=== PATIENT | female | born 1970 | race Caucasian/White ===

== ENCOUNTER 2016-09-17 13:48 | Emergency (ER) | payer MEDICAID ==
[~2016-09-17] VITALS: Ht 152.4 cm; Wt 58.4 kg
[~2016-09-17 13:48] MED LIST: ACET500C5 PO; ASPI-465 PO; BENZ1LOZ28 MM; CETI10CA PO; CIPR500T4 PO; D-ME118S6 PO; HYDR-3498 PO; HYDR-906 PO; IBUP-1542 PO; METF1000 PO; METO10TA96 PO; OMEP20CA16 PO; TRAM50TA2 PO; VIGA RIGHT EYE
[2016-09-17 14:06] VITALS: Ht 152.4 cm; Wt 58.4 kg
[2016-09-17] MEDS ORDERED: morphine 4 MG/ML VIAL IV STA (17:35)
[2016-09-17] MEDS ORDERED: ONDANSETRON 4 MG INJ IV STA (17:35)
[2016-09-17] MEDS ORDERED: SOD CHLORIDE 0.9% 1,000 ML IV STA (17:35)
[2016-09-17 18:15] LABS: ADD SCAN DIFF NO
[2016-09-17 18:21] LABS: ADD UMIC NO; URINE BILIRUBIN (Dip) NEGATIVE (NEGATIVE); URINE BLOOD (Dip) NEGATIVE (NEGATIVE); URINE COLOR LT. YELLOW (YELLOW); URINE GLUCOSE (Dip) >=1000 % (NEGATIVE); URINE KETONES (Dip) TRACE (NEGATIVE); URINE LEUKOCYTE ESTERASE (Dip) NEGATIVE (NEGATIVE); URINE NITRITE (Dip) NEGATIVE (NEGATIVE); URINE TOTAL PROTEIN (Dip) NEGATIVE (NEGATIVE); URINE UROBILINOGEN (Dip) 0.2 E.U./dL (0.1-1.0)
[2016-09-17 18:23] LABS: BASOPHILS % 0.8 % (0.0-2.0); EOSINOPHILS # 0.2 10^3/ul (0.0-0.5); EOSINOPHILS % 3.8 % (0.0-7.0); HEMATOCRIT 37.8 % (37.0-47.0); HEMOGLOBIN 13.2 g/dl (12.0-16.0); LYMPHOCYTES # 1.6 10^3/ul (0.8-2.9); MEAN CORPUSCULAR HEMOGLOBIN 31.6 pg (29.0-33.0); MEAN CORPUSCULAR HGB CONC 34.9 g/dl (32.0-37.0); MEAN CORPUSCULAR VOLUME 90.4 fl (82.0-101.0); MONOCYTE # 0.4 10^3/ul (0.3-0.9); MONOCYTES % 9.1 % (0.0-11.0); NEUTROPHIL # 2.5 10^3/ul (1.6-7.5); NEUTROPHILS % 52.1 % (39.0-77.0); PLATELET COUNT 285 10^3/UL (140-415); RED BLOOD COUNT 4.18 10^6/ul (4.20-5.40); RED CELL DISTRIBUTION WIDTH 11.3 % (11.5-14.5); WHITE BLOOD COUNT 4.7 10^3/ul (4.8-10.8)
[2016-09-17 18:28] LABS: ALBUMIN 3.9 g/dl (3.3-4.9)
[2016-09-17 18:31] LABS: ALBUMIN/GLOBULIN RATIO 1.25; BILIRUBIN,INDIRECT 0.1 mg/dl (0-1.1); BILIRUBIN,TOTAL 0.1 mg/dl (0.2-1.3); CREATININE 0.38 mg/dl (0.44-1.00)
--- NOTE | 2016-09-17 18:44 | RADRPT ---
PROCEDURE: CT Abdomen and Pelvis without contrast. CLINICAL INDICATION: Abdominal and pelvic pain. TECHNIQUE: CT scan of the abdomen and pelvis without contrast was performed. Coronal and sagittal reformatted images were obtained from the axial source images. Images were reviewed on a high-resolu [employer] PACS workstation. Total exam DLP is 310.42 mGy-cm. CTDIvol is 5.66 mGy. One or more of the fo [facility] express dose reduction techniques were used: Automated exposure control, adjustment of the mA and/or kV according to patient size, use of iterative reconstruction technique. COMPARISON: CT scan of the abdomen and pelvis dated 04/06/2016. FINDINGS: The lung bases are normal. There is no pleural effusion. The liver is normal in size and attenuation. There is no focal hepatic lesion. The gallbladder is surgically absent with clips noted in the gallbladder bed. The bile ducts are no rmal. The spleen is normal in size. There is no focal splenic lesion. Both adrenals are normal with no enlargement or mass. The pancreas is unremarkable with no mass or evidence of pancreatitis. There is no renal mass or hydronephrosis. There is no renal calculus or ureteral calculus. The abdominal aorta is not dilated. There is no retroperitoneal lymphadenopathy or mass. There is no pelvic lymphadenopathy. There is a left adnexal cyst measuring 4.4 x 5.8 cm in AP and t ransverse dimensions. The bladder and distal ureters are normal. The periappendiceal region is unremarkable with no evidence of appendicitis. The bowel and mesentery are normal. There is no free fluid or free gas. The osseous structures are unremarkable with no fracture or lytic lesion. IMPRESSION: 1. Status post cholecystectomy. 2. Left adnexal cyst measuring 4.4 x 5.8 cm. Correlation with pelvic ultrasound advised. 3. Otherwise normal noncontrast CT scan of the abdomen and pelvis. RPTAT: QQ .Parvez Pfeiffer MD, Date Time Electronically viewed and signed by .Parvez Pfeiffer MD, on 09/17/2016 18:44 .R/
[2016-09-17] MEDS ORDERED: KETOROLAC 30 MG INJ IV STA (18:54)
--- NOTE | 2016-09-17 19:30 | RADRPT ---
PROCEDURE: US Pelvis. CLINICAL INDICATION: Pelvic pain. Left adnexal cyst seen on prior CT scan. TECHNIQUE: The pelvis was evaluated with transabdominal sonography in the axial and sagittal plane s. COMPARISON: CT scan of the abdomen and pelvis done earlier the same day. FINDINGS: Uterus: 7.6 x 4.3 x 5.9 cm. Endometrium: 5.1 mm. Right ovary: 3.4 x 2.2 x 2.6 cm. Left ovary: 6.3 x 5.1 x 5.9 cm. Uterine masses: None. Ovarian masses: The right ovary is normal. There is a left ovarian cyst with internal echoes and se ptations. The cyst measures 5.5 x 4.7 x 4.7 cm. Color Doppler and pulsed Doppler sonography demonst rate normal flow to the ovaries. Other pelvic masses: None. Free fluid: None. IMPRESSION: 1. Complex left ovarian cyst with internal echoes and septations measuring 5.5 x 4.7 x 4.7 cm. Thi s may be due to a hemorrhagic cyst or neoplasm. Clinical correlation and gynecologic consultation a dvised. 2. Otherwise unremarkable study. RPTAT: QQ .Parvez Pfeiffer MD, MD Date Time Electronically viewed and signed by .Parvez Pfeiffer MD, on 09/17/2016 19:30 .R/
[2016-09-17] MEDS ORDERED: HYDR-906 PO (19:46)
[2016-09-17 19:54] VITALS: BP 102/68; PULSE 92; RESP 18; TEMP 98
--- NOTE | 2016-09-17 19:58 | ERD ---
ER Documentation Chief Complaint Date/Time DATE: 09/17/16 TIME: 19:54 Chief Complaint Pt with LLQ pain X 3 days. Denies V/D. HPI This is a 45-year-old female that presents to the ER with left lower quadrant pain for the last 3 days. Patient states that left lower quadrant pain is severe and constant it is worse whenever she moves. Pain is rated as 8 out of 10. It radiates to her left leg. Patient denies any nausea vomiting or diarrhea. She denies any fevers or chills. She denies any urinary frequency or dysuria. Last menstrual period was August 19, 2016. ROS 12 point review of systems was done, all negative except per HPI. Medications Home Meds Active Scripts Hydrocodone/Acetaminophen ([place] 5-325 Tablet) 1 Each Tablet, 1 TAB PO Q6H Y for PAIN, #20 TAB Prov:SAYRA WARE 09/17/16 Hydrocodone/Acetaminophen ([place] 5-325 Tablet) 1 Each Tablet, 1 EACH PO Q6, #7 TAB Prov:PEDRO PIERCE PA-C 04/06/16 Dextromethorphan Hb-Promethazine Hcl (Promethazine DM Syrup) 180 Ml Syrup, 5 ML PO Q6H Y for COUGH, #4 OZ Prov:AGNES BRENNER I. DROP FORGER HELPER 09/11/15 Benzocaine/Menthol ([facility] SORE THROAT LOZENGE) 1 Each Lozenge, 1 EACH MM Q2H for 10 Days, LOZENGE Prov:AGNES BRENNER I. DROP FORGER HELPER 09/11/15 Acetaminophen* (Tylophen*) 500 Mg Capsule, 1000 MG PO Q6H Y for FEVER for 10 Days, TAB Prov:AGNES BRENNER I. DROP FORGER HELPER 09/11/15 Ibuprofen* (Motrin*) 600 Mg Tab, 600 MG PO Q6, #20 TAB Prov:AGNES BRENNER I. DROP FORGER HELPER 09/11/15 Cetirizine Hcl* (Zyrtec*) 10 Mg Capsule, 10 MG PO DAILY, #10 TAB.CHEW Prov:AGNES BRENNER I. DROP FORGER HELPER 09/11/15 Hydrocodone Bit-Acetaminophen* ([place]*) 5-325 Mg Tab, 1 TAB PO Q6 Y for PAIN, # 7 TAB Prov:AGNES BRENNER I. DROP FORGER HELPER 09/11/15 Moxifloxacin Hcl* (Vigamox*) 0.5% - 3 Ml Opht, 1 DROP RIGHT EYE TID, #1 EA Prov:ANA SUTTON PA-C 04/24/15 Tramadol HCl (Tramadol HCl) 50 Mg Tab, 50 MG PO Q4 Y for PAIN, #10 TAB Prov:ANA SUTTON PA-C 04/24/15 Tramadol HCl (Tramadol HCl) 50 Mg Tab, 50 MG PO Q6 Y for PAIN, #20 TAB Prov:NORMAN FARLEY 02/20/15 Ciprofloxacin Hcl* (Ciprofloxacin Hcl*) 500 Mg Tablet, 500 MG PO BID for 7 Days , TAB Prov:LIYA GILLESPIE MD 02/06/15 Hydrocodone Bit-Acetaminophen* ([place]*) 5-325 Mg Tab, 1 TAB PO Q6 Y for PAIN, # 10 TAB Prov:LIYA GILLESPIE MD 02/06/15 Reported Medications Metformin Hcl* (Metformin Hcl*) 1,000 Mg Tablet, 1000 MG PO BID 10/17/12 Omeprazole* (Omeprazole*) 20 Mg Capsule.dr, 20 MG PO DAILY 10/17/12 Aspirin (Adult Low Dose Aspirin) 81 Mg Tablet.dr, 81 MG PO DAILY 10/17/12 Metoclopramide Hcl* (Metoclopramide Hcl*) 10 Mg Tablet, 10 MG PO DAILY 10/17/12 Allergies Allergies: Coded Allergies: No Known Drug Allergies (Verified Allergy, Mild, 09/11/15) PMhx/Soc History of Surgery: Yes (c section) Anesthesia Reaction: No Hx Neurological Disorder: No Hx Respiratory Disorders: No Hx Cardiac Disorders: Yes (htn; hypercholesterolemia) Hx Psychiatric Problems: No Hx Miscellaneous Medical Probl: Yes (DM) Hx Alcohol Use: No Hx Substance Use: No Hx Tobacco Use: No Smoking Status: Never smoker Physical Exam Vitals Vital Signs Date Time Temp Pulse Resp B/P Pulse Ox O2 Delivery O2 Flow Rate FiO2 09/17/16 14:06 98.1 102 20 104/63 99 Physical Exam GENERAL: The patient is well developed and appropriate for usual state of health , in no apparent distress. HEENT: Atraumatic. Conjunctivae are pink. Pupils equal, round, and reactive to light. Extraocular muscles are grossly intact. Bilateral tympanic membranes are clear with no evidence of erythema, effusion or dulling of the light reflex. The oropharynx is clear with no erythema or exudates. CHEST: Clear to auscultation bilaterally. There are no rales, wheezes or rhonchi. HEART: Regular rate and rhythm. No murmurs, clicks, rubs or gallops. ABDOMEN: Soft, and nondistended. Good bowel sounds. No rebound or guarding. No gross peritonitis. No gross organomegaly or masses. No Zarco sign or McBurney point tenderness. Patient to palpation in the left lower quadrant NEURO: Alert and oriented. Result Diagram: 09/17/16175009/17/161750 Results 24 hrs Laboratory Tests Test 09/17/16 17:51 Alanine Aminotransferase (ALT/SGPT) 35IU/L Albumin 3.9g/dl Albumin/Globulin Ratio 1.25 Alkaline Phosphatase 80IU/L Anion Gap 16 Aspartate Amino Transf (AST/SGOT) 22IU/L Basophils # 0.010^3/ul Basophils % 0.8% Blood Urea Nitrogen 14mg/dl Calcium Level 9.0mg/dl Carbon Dioxide Level 26mmol/L Chloride Level 101mmol/L Creatinine 0.38mg/dl Direct Bilirubin 0.00mg/dl Eosinophils # 0.210^3/ul Eosinophils % 3.8% Globulin 3.10g/dl Glucose Level 233mg/dl Hematocrit 37.8% Hemoglobin 13.2g/dl Indirect Bilirubin 0.1mg/dl Lipase 60U/L Lymphocytes # 1.610^3/ul Lymphocytes % 34.0% Mean Corpuscular Hemoglobin 31.6pg Mean Corpuscular Hemoglobin Concent 34.9g/dl Mean Corpuscular Volume 90.4fl Mean Platelet Volume 10.0fl Monocytes # 0.410^3/ul Monocytes % 9.1% Neutrophils # 2.510^3/ul Neutrophils % 52.1% Nucleated Red Blood Cells # 0.010^3/ul Nucleated Red Blood Cells % 0.0/100WBC Platelet Count 21456^3/UL Potassium Level 4.0mmol/L Red Blood Count 4.1810^6/ul Red Cell Distribution Width 11.3% Sodium Level 139mmol/L Total Bilirubin 0.1mg/dl Total Protein 7.0g/dl Urine Bilirubin NEGATIVE Urine Clarity CLEAR Urine Color LT. YELLOW Urine Glucose >=1000% Urine Hemoglobin NEGATIVE Urine Ketones TRACE Urine Leukocyte Esterase NEGATIVE Urine Nitrite NEGATIVE Urine Specific [place] 1.025 Urine Total Protein NEGATIVE Urine Urobilinogen 0.2 E.U./dL Urine pH 6.0 White Blood Count 4.710^3/ul Current Medications Medications (Trade) Dose Ordered Sig/Britta Route PRN Reason Start Time Stop Time Status Last Admin Dose Admin Sodium Chloride (NS) 1,000 ml @ 1,000 mls/hr Q1H STAT IV 09/17/16 17:35 09/17/16 18:34 DC 09/17/16 17:51 Morphine Sulfate (morphine) 5 mg ONCE STAT IV 09/17/16 17:35 09/17/16 17:37 DC 09/17/16 17:51 Ondansetron HCl (Zofran Inj) 4 mg ONCE STAT IV 09/17/16 17:35 09/17/16 17:37 DC 09/17/16 17:50 Ketorolac Tromethamine (Toradol) 30 mg ONCE STAT IV 09/17/16 18:54 09/17/16 18:55 DC 09/17/16 19:23 Procedures/MDM Differential diagnosis includes but is not limited to appendicitis, diverticulitis, hernia, UTI, constipation, ectopic , ovarian cyst, ovarian torsion, PID, Mittelschmerz, fibroid. Patient did have a significant ovarian cyst. At this time there is no evidence of ovarian torsion. Patient is afebrile and well-appearing 8 out acute abdomen. There is no evidence of diverticulitis. Patient urgently needs to follow-up with an CUSTOMER SUPPORT EXECUTIVE. Patient will be sent with [place]. She is to return to ER sooner if symptoms worsen. Medical decision making was shared with the patient understands and agrees with plan. Departure Diagnosis: Primary Impression: Ovarian cyst Condition: Stable Patient Instructions: What Are Ovarian Cysts? Additional Instructions: Llame al doctor MAANA y ga jennie EUN PARA DENTRO DE 1-2 WHITTAKER.Dgale a la secretaria que nosotros le instruimos hacer esta eun.Avise o llame si medina condicin se empeora antes de la eun. Regresa aqui si peor o no mejor. NECESITAS IR A JENNIE GINECOLOGA LO MAS PRONTO POSIBLE! PIDELE A TU DOCTOR DE CABEZERA JENNIE AUTORIZACION. SAYRA WARE Sep 17, 2016 19:57
== END 2016-09-17 19:54 | disposition home or self-care (01) ==
LOC: FTE 13:48
DX: N83.202 Unspecified ovarian cyst, left side (principal); I10 Essential (primary) hypertension; E11.9 Type 2 diabetes mellitus without complications; Z79.82 Long term (current) use of aspirin; Z79.84 Long term (current) use of oral hypoglycemic drugs
CPT/HCPCS: 36415; 74176; 76856; 80053; 81003; 83690; 85025; 96374; 96375; J1885; J2270; J2405; J7030; Z7502

== ENCOUNTER 2016-10-28 07:47 | Emergency (ER) | payer MEDICAID ==
[~2016-10-28] VITALS: Ht 152.4 cm; Wt 56.0 kg
[2016-10-28 07:49] VITALS: Ht 152.4 cm; Wt 56.0 kg
[2016-10-28] MEDS ORDERED: KETOROLAC 30 MG INJ IM STA (08:23)
[2016-10-28] MEDS ORDERED: HYDROCODONE/APAP (5/325) TAB PO ONE (08:30)
[2016-10-28 08:43] LABS: URINE BLOOD (Dip) POC Negative (NEGATIVE)
[2016-10-28 08:57] LABS: ADD SCAN DIFF NO
[2016-10-28 09:03] LABS: BASOPHILS % 0.8 % (0.0-2.0); EOSINOPHILS # 0.1 10^3/ul (0.0-0.5); EOSINOPHILS % 2.9 % (0.0-7.0); HEMATOCRIT 38.4 % (37.0-47.0); HEMOGLOBIN 13.5 g/dl (12.0-16.0); LYMPHOCYTES # 1.3 10^3/ul (0.8-2.9); LYMPHOCYTES % 27.3 % (15.0-51.0); MEAN CORPUSCULAR HEMOGLOBIN 31.8 pg (29.0-33.0); MEAN CORPUSCULAR HGB CONC 35.2 g/dl (32.0-37.0); MEAN CORPUSCULAR VOLUME 90.4 fl (82.0-101.0); MEAN PLATELET VOLUME 9.4 fl (7.4-10.4); MONOCYTE # 0.4 10^3/ul (0.3-0.9); MONOCYTES % 7.8 % (0.0-11.0); NEUTROPHIL # 2.9 10^3/ul (1.6-7.5); PLATELET COUNT 250 10^3/UL (140-415); RED BLOOD COUNT 4.25 10^6/ul (4.20-5.40); RED CELL DISTRIBUTION WIDTH 11.3 % (11.5-14.5); WHITE BLOOD COUNT 4.8 10^3/ul (4.8-10.8)
--- NOTE | 2016-10-28 09:13 | RADRPT ---
PROCEDURE: Bilateral lower extremity venous ultrasound CLINICAL INDICATION: Bilateral leg pain and swelling TECHNIQUE: Multiple transverse and longitudinal images of the bilateral lower extremity were obtai sophie. COMPARISON: 03/01/2013 FINDINGS: Normal compressibility and color flow in the bilateral common femoral vein to the popliteal vein is seen. Normal respiratory variability and augmentation is seen. IMPRESSION: No sonographic evidence for a deep venous thrombosis. RPTAT: HPNM Physician Tsering Date Time Electronically viewed and signed by Ronnie Bermeo Physician on 10/28/2016 09:13 /
[2016-10-28 09:14] LABS: ALBUMIN/GLOBULIN RATIO 1.33; BILIRUBIN,INDIRECT 0.6 mg/dl (0-1.1); BILIRUBIN,TOTAL 0.6 mg/dl (0.2-1.3); CREATININE 0.43 mg/dl (0.44-1.00); POTASSIUM 4.3 mmol/L (3.5-5.1)
--- NOTE | 2016-10-28 09:46 | RADRPT ---
PROCEDURE: XR L-Spine. CLINICAL INDICATION: Low back pain. Bilateral feet numbness and tingling TECHNIQUE: AP, lateral, and cone down views of the lumbar spine were obtained. COMPARISON: None FINDINGS: The lumbar lordosis is maintained. The vertebral body heights are normal. Osteophytosis is seen at T11-12 with mild disk height loss. Mild disk height loss at L5-S1 is also seen. Small marginal ost eophytes are seen in the lumbar spine. No acute fracture or subluxation is seen. No paravertebral s oft tissue abnormality is seen. Cholecystectomy clips are seen. IMPRESSION: Very mild discogenic disease in the lumbar spine. RPTAT: HPNM Physician Tsering Date Time Electronically viewed and signed by Physician Tsering on 10/28/2016 09:46 /
--- NOTE | 2016-10-28 09:49 | ERD ---
ER Documentation Chief Complaint Date/Time DATE: 10/28/16 TIME: 09:45 Chief Complaint left knee pain x 5 days; motrin and tylenol are not working for pain HPI This is a 45-year-old female presenting to the emergency department for bilateral leg pain with numbness and tingling to bottom of bilateral feet 5 days. Patient states pain was severe last night and has difficulty sleeping. Patient took Motrin and Tylenol at home however states pain in 10 years. Upon arrival, patient states most of her pain is in her left knee that does radiate down to lateral aspect of left calf. No swelling. No recent injury or trauma. Patient denies back pain, abdominal pain. No nausea, vomiting or diarrhea. No fevers or chills. Patient has history of diabetes however has not checked her blood glucose. Patient has history of sciatica, knee pain and bilateral leg pain. ROS All systems reviewed and are negative except as per history of present illness. Medications Home Meds Active Scripts Ibuprofen* (Motrin*) 400 Mg Tab, 400 MG PO Q6, #15 TAB Prov:SINA ALARCON NP 10/28/16 Hydrocodone/Acetaminophen ([place] 5-325 Tablet) 1 Each Tablet, 1 TAB PO Q6H Y for PAIN, #7 TAB Prov:SINA ALARCON NP 10/28/16 Hydrocodone/Acetaminophen ([place] 5-325 Tablet) 1 Each Tablet, 1 TAB PO Q6H Y for PAIN, #20 TAB Prov:SAYRA WARE 09/17/16 Hydrocodone/Acetaminophen ([place] 5-325 Tablet) 1 Each Tablet, 1 EACH PO Q6, #7 TAB Prov:PEDRO PIERCE PA-C 04/06/16 Dextromethorphan Hb-Promethazine Hcl (Promethazine DM Syrup) 180 Ml Syrup, 5 ML PO Q6H Y for COUGH, #4 OZ Prov:AGNES BRENNER NP 09/11/15 Benzocaine/Menthol ([facility] SORE THROAT LOZENGE) 1 Each Lozenge, 1 EACH MM Q2H for 10 Days, LOZENGE Prov:AGNES BRENNER NP 09/11/15 Acetaminophen* (Tylophen*) 500 Mg Capsule, 1000 MG PO Q6H Y for FEVER for 10 Days, TAB Prov:AGNES BRENNER NP 09/11/15 Ibuprofen* (Motrin*) 600 Mg Tab, 600 MG PO Q6, #20 TAB Prov:AGNES BRENNER I. PRODUCT SUPPORT ANALYST 09/11/15 Cetirizine Hcl* (Zyrtec*) 10 Mg Capsule, 10 MG PO DAILY, #10 TAB.CHEW Prov:AGNES BRENNER I. PRODUCT SUPPORT ANALYST 09/11/15 Hydrocodone Bit-Acetaminophen* ([place]*) 5-325 Mg Tab, 1 TAB PO Q6 Y for PAIN, # 7 TAB Prov:AGNES BRENNER I. PRODUCT SUPPORT ANALYST 09/11/15 Moxifloxacin Hcl* (Vigamox*) 0.5% - 3 Ml Opht, 1 DROP RIGHT EYE TID, #1 EA Prov:ANA SUTTON PA-C 04/24/15 Tramadol HCl (Tramadol HCl) 50 Mg Tab, 50 MG PO Q4 Y for PAIN, #10 TAB Prov:ANA SUTTON PA-C 04/24/15 Tramadol HCl (Tramadol HCl) 50 Mg Tab, 50 MG PO Q6 Y for PAIN, #20 TAB Prov:NORMAN FARLEY 02/20/15 Ciprofloxacin Hcl* (Ciprofloxacin Hcl*) 500 Mg Tablet, 500 MG PO BID for 7 Days , TAB Prov:LIYA GILLESPIE MD 02/06/15 Hydrocodone Bit-Acetaminophen* ([place]*) 5-325 Mg Tab, 1 TAB PO Q6 Y for PAIN, # 10 TAB Prov:LIYA GILLESPIE MD 02/06/15 Reported Medications Metformin Hcl* (Metformin Hcl*) 1,000 Mg Tablet, 1000 MG PO BID 10/17/12 Omeprazole* (Omeprazole*) 20 Mg Capsule.dr, 20 MG PO DAILY 10/17/12 Aspirin (Adult Low Dose Aspirin) 81 Mg Tablet.dr, 81 MG PO DAILY 10/17/12 Metoclopramide Hcl* (Metoclopramide Hcl*) 10 Mg Tablet, 10 MG PO DAILY 10/17/12 Allergies Allergies: Coded Allergies: No Known Drug Allergies (Verified Allergy, Mild, 10/28/16) PMhx/Soc History of Surgery: Yes (c section) Anesthesia Reaction: No Hx Neurological Disorder: No Hx Respiratory Disorders: No Hx Cardiac Disorders: Yes (htn; hypercholesterolemia) Hx Psychiatric Problems: No Hx Miscellaneous Medical Probl: Yes (DM) Hx Alcohol Use: Yes (Social) Hx Substance Use: Yes Hx Tobacco Use: No Smoking Status: Never smoker Physical Exam Vitals Vital Signs Date Time Temp Pulse Resp B/P Pulse Ox O2 Delivery O2 Flow Rate FiO2 10/28/16 13:00 98.5 70 18 111/68 99 Room Air 10/28/16 07:49 98.1 97 19 107/68 100 Physical Exam Const: no acute distress, alert Head: Atraumatic Eyes: Normal Conjunctiva ENT: Normal External Ears, Nose and Mouth. Neck: Full range of motion..~ No meningismus. Resp: Clear to auscultation bilaterally Cardio: Regular rate and rhythm, no murmurs Abd: Soft, non tender, non distended. Normal bowel sounds Skin: No petechiae or rashes Back: No midline or flank tenderness Ext: No cyanosis, or edema Neur: Awake and alert Psych: Normal Mood and Affect Result Diagram: 10/28/16 0839 10/28/16 0839 Results 24 hrs Laboratory Tests Test 10/28/16 08:39 10/28/16 08:43 10/28/16 11:12 10/28/16 12:32 White Blood Count 4.810^3/ul Red Blood Count 4.2510^6/ul Hemoglobin 13.5g/dl Hematocrit 38.4% Mean Corpuscular Volume 90.4fl Mean Corpuscular Hemoglobin 31.8pg Mean Corpuscular Hemoglobin Concent 35.2g/dl Red Cell Distribution Width 11.3% Platelet Count 10735^3/UL Mean Platelet Volume 9.4fl Neutrophils % 61.0% Lymphocytes % 27.3% Monocytes % 7.8% Eosinophils % 2.9% Basophils % 0.8% Nucleated Red Blood Cells % 0.0/100WBC Neutrophils # 2.910^3/ul Lymphocytes # 1.310^3/ul Monocytes # 0.410^3/ul Eosinophils # 0.110^3/ul Basophils # 0.010^3/ul Nucleated Red Blood Cells # 0.010^3/ul Sodium Level 135mmol/L Potassium Level 4.3mmol/L Chloride Level 98mmol/L Carbon Dioxide Level 29mmol/L Anion Gap 12 Blood Urea Nitrogen 15mg/dl Creatinine 0.43mg/dl Glucose Level 344mg/dl Calcium Level 9.0mg/dl Total Bilirubin 0.6mg/dl Direct Bilirubin 0.00mg/dl Indirect Bilirubin 0.6mg/dl Aspartate Amino Transf (AST/SGOT) 20IU/L Alanine Aminotransferase (ALT/SGPT) 25IU/L Alkaline Phosphatase 64IU/L Total Protein 7.0g/dl Albumin 4.0g/dl Globulin 3.00g/dl Albumin/Globulin Ratio 1.33 Bedside Urine pH (LAB) 5.5 Bedside Urine Protein (LAB) Negative Bedside Urine Glucose (UA) 0.50% Bedside Urine Ketones (LAB) Negative Bedside Urine Blood Negative Bedside Urine Nitrite (LAB) Negative Bedside Urine Leukocyte Esterase (L Negative Bedside Glucose 282mg/dL 232mg/dL Current Medications Medications (Trade) Dose Ordered Sig/Britta Route PRN Reason Start Time Stop Time Status Last Admin Dose Admin Ketorolac Tromethamine (Toradol) 30 mg ONCE STAT IM 10/28/16 08:23 10/28/16 08:27 DC 10/28/16 08:45 Acetaminophen/ Hydrocodone Bitart 1 tab 1 tab ONCE ONCE PO 10/28/16 08:30 10/28/16 08:31 DC 10/28/16 08:45 Sodium Chloride 500 ml @ 500 mls/hr Q1H ONCE IV 10/28/16 10:00 10/28/16 11:38 DC 10/28/16 10:07 Sodium Chloride (NS) 500 ml @ 500 mls/hr Q1H ONCE IV 10/28/16 11:30 10/28/16 12:29 DC 10/28/16 11:29 Procedures/MDM ED COURSE: The patient was stable throughout ED course. I kept the patient and/or family informed of laboratory and diagnostic imaging results throughout the ED course. Laboratory CBC no significant anemia or infection CMP blood glucose 344, upon recheck blood glucose 282 and upon recheck 232 Urine dip negative Imaging Venous doppler ultrasound Patient: LEODAN SESAY : 1970 Age: 45 Sex: F MR #: [id number] DOS: 10/28/16822 Ordering MD: SINA ALARCON NP Location: [facility] Room/Bed: PROCEDURE: Bilateral lower extremity venous ultrasound CLINICAL INDICATION: Bilateral leg pain and swelling TECHNIQUE: Multiple transverse and longitudinal images of the bilateral lower extremity were obtained. COMPARISON: 03/01/2013 FINDINGS: Normal compressibility and color flow in the bilateral common femoral vein to the popliteal vein is seen. Normal respiratory variability and augmentation is seen. IMPRESSION: No sonographic evidence for a deep venous thrombosis. XR lumbar spine Patient: LEODAN SESAY : 1970 Age: 45 Sex: F MR #: [id number] DOS: 10/28/16822 Ordering MD: SINA ALARCON NP Location: [facility] Room/Bed: PROCEDURE: XR L-Spine. CLINICAL INDICATION: Low back pain. Bilateral feet numbness and tingling TECHNIQUE: AP, lateral, and cone down views of the lumbar spine were obtained. COMPARISON: None FINDINGS: The lumbar lordosis is maintained. The vertebral body heights are normal. Osteophytosis is seen at T11-12 with mild disk height loss. Mild disk height loss at L5-S1 is also seen. Small marginal osteophytes are seen in the lumbar spine. No acute fracture or subluxation is seen. No paravertebral soft tissue abnormality is seen. Cholecystectomy clips are seen. IMPRESSION: Very mild discogenic disease in the lumbar spine. XR right knee Patient: LEODAN SESAY : 1970 Age: 45 Sex: F MR #: [id number] DOS: 10/28/16822 Ordering MD: SINA ALARCON NP Location: [facility] Room/Bed: PROCEDURE: Left knee x-ray CLINICAL INDICATION: left knee pain TECHNIQUE: AP, lateral and oblique views of the left knee were obtained. COMPARISON: None FINDINGS: There is normal mineralization. No acute fracture or dislocation is seen. There are no significant degenerative changes. There is no joint effusion. There is no significant soft tissue swelling. IMPRESSION: Normal x-ray of the left knee. MDM: 45 year old female presents to ER with bilateral leg pain and left knee pain x 5 days. Patient does have numbness and tingling to bilateral feet. Patient has history of diabetes and does not check her blood glucose regularly. IV access obtained per staff combat information center officer. Patient given Toradol and [place]. Venous Doppler ultrasound of bilateral legs reviewed by radiologist as no sonographic evidence for a deep venous thrombosis. X-ray lumbar spine reviewed by radiologist as very mild discogenic disease in the lumbar spine. X-ray left knee reviewed by radiologist as normal. Patient states her pain has improved. CBC shows no significant infection or anemia. CBC reveals blood glucose 344. Patient given IV fluid bolus of normal saline 500 mL. Upon recheck of blood glucose patient's blood glucose is 282., Patient given another 500 mL IV fluid bolus of normal saline and upon recheck, patient's blood glucose is 232. Urine is negative for infection. Remains hemodynamically stable and afebrile. Low suspicion for acute dislocation, fracture, cauda equina, epidural abscess, diskitis, DVT and osteomyelitis. Patient is appropriate for outpatient management and will be discharged with prescription for [place] and ibuprofen. Instructed patient to follow-up with primary care provider in the next 2-3 days for reassessment and additional management. Return to ED for any high fever, chest pain, difficulty breathing, shortness breath, wheezing, vomiting, diarrhea, abdominal pain or any new or worsening symptoms. Patient verbalizes understanding. All questions answered at discharge. Departure Diagnosis: Primary Impression: Bilateral leg pain SINA ALARCON NP Oct 28, 2016 09:49
[2016-10-28] MEDS ORDERED: SOD CHLORIDE 0.9% 500 ML IV ONE ×2 (10:00→11:30)
--- NOTE | 2016-10-28 10:16 | RADRPT ---
PROCEDURE: Left knee x-ray CLINICAL INDICATION: left knee pain TECHNIQUE: AP, lateral and oblique views of the left knee were obtained. COMPARISON: None FINDINGS: There is normal mineralization. No acute fracture or dislocation is seen. There are no significant degenerative changes. There is no joint effusion. There is no significant soft tissue swelling. IMPRESSION: Normal x-ray of the left knee. RPTAT: HJES .Jerosn Monae MD, MD Date Time Electronically viewed and signed by .Jerson Monae MD, on 10/28/2016 10:15 .S/
[2016-10-28] MEDS ORDERED: HYDR-906 PO (12:13)
[2016-10-28] MEDS ORDERED: IBUP400T22 PO (12:13)
[2016-10-28 13:00] VITALS: BP 111/68; PULSE 70; RESP 18; TEMP 98.5
== END 2016-10-28 13:00 | disposition home or self-care (01) ==
LOC: FTE 07:47
DX: M79.661 Pain in right lower leg (principal); M79.662 Pain in left lower leg; I10 Essential (primary) hypertension; E11.9 Type 2 diabetes mellitus without complications; Z79.84 Long term (current) use of oral hypoglycemic drugs; Z79.82 Long term (current) use of aspirin
CPT/HCPCS: 36415; 72100; 73562; 80053; 81003; 82962; 85025; 93970; 96360; 96372; J1885; J7040; Z7502; Z7610

== ENCOUNTER 2017-06-07 20:59 | Emergency (ER) | payer MEDICAID ==
[~2017-06-07] VITALS: Ht 152.4 cm; Wt 58.6 kg
[~2017-06-07 20:59] MED LIST changes: +IBUP400T22 PO
[2017-06-07 21:03] VITALS: Ht 152.4 cm; Wt 58.6 kg
--- NOTE | 2017-06-07 22:52 | ERD ---
ER Documentation Chief Complaint Chief Complaint BIB SELF C/O BILATERAL LEG PAIN X 3 DAYS. DENIES ANY INJURY HPI The patient is a 46-year-old female, presenting to the ER because of acute on chronic bilateral lower extremity pain, worse for the last 3 days, has similar symptoms previously, denies urinary/fecal incontinence, fever, chills, neck pain , chest pain, dyspnea, abdominal, vomiting. She does not smoke or drink, denies any history of IV drug abuse. Past medical history: Hypertension, dyslipidemia, diabetes mellitus, chronic low back pain Past surgical history 2 , cholecystectomy ROS All systems reviewed and are negative except as per history of present illness. Medications Home Meds Active Scripts Gabapentin* (Neurontin*) 300 Mg Capsule, 300 MG PO BID, #30 CAP Prov:JOSIANE MARKHAM MD 06/07/17 Ibuprofen* (Motrin*) 400 Mg Tab, 400 MG PO Q6, #15 TAB Prov:SINA ALARCON NP 10/28/16 Hydrocodone/Acetaminophen ([place] 5-325 Tablet) 1 Each Tablet, 1 TAB PO Q6H Y for PAIN, #7 TAB Prov:SINA ALARCON NP 10/28/16 Hydrocodone/Acetaminophen ([place] 5-325 Tablet) 1 Each Tablet, 1 TAB PO Q6H Y for PAIN, #20 TAB Prov:SAYRA WARE 09/17/16 Hydrocodone/Acetaminophen ([place] 5-325 Tablet) 1 Each Tablet, 1 EACH PO Q6, #7 TAB Prov:PEDRO PIERCE PA-C 04/06/16 Dextromethorphan Hb-Promethazine Hcl (Promethazine DM Syrup) 180 Ml Syrup, 5 ML PO Q6H Y for COUGH, #4 OZ Prov:AGNES BRENNER I. RADIO ADJUSTER 09/11/15 Benzocaine/Menthol ([facility] SORE THROAT LOZENGE) 1 Each Lozenge, 1 EACH MM Q2H for 10 Days, LOZENGE Prov:BRENNERAGNES I. RADIO ADJUSTER 09/11/15 Acetaminophen* (Tylophen*) 500 Mg Capsule, 1000 MG PO Q6H Y for FEVER for 10 Days, TAB Prov:BRENNERAGNES SALMERON I. RADIO ADJUSTER 09/11/15 Ibuprofen* (Motrin*) 600 Mg Tab, 600 MG PO Q6, #20 TAB Prov:BRENNERAGNES I. RADIO ADJUSTER 09/11/15 Cetirizine Hcl* (Zyrtec*) 10 Mg Capsule, 10 MG PO DAILY, #10 TAB.CHEW Prov:AGNES BRENNER I. RADIO ADJUSTER 09/11/15 Hydrocodone Bit-Acetaminophen* ([place]*) 5-325 Mg Tab, 1 TAB PO Q6 Y for PAIN, # 7 TAB Prov:BRENNERAGNES ALDRICH I. RADIO ADJUSTER 09/11/15 Moxifloxacin Hcl* (Vigamox*) 0.5% - 3 Ml Opht, 1 DROP RIGHT EYE TID, #1 EA Prov:ANA SUTTON PA-C 04/24/15 Tramadol HCl (Tramadol HCl) 50 Mg Tab, 50 MG PO Q4 Y for PAIN, #10 TAB Prov:ANA SUTTON PA-C 04/24/15 Tramadol HCl (Tramadol HCl) 50 Mg Tab, 50 MG PO Q6 Y for PAIN, #20 TAB Prov:NORMAN FARLEY 02/20/15 Ciprofloxacin Hcl* (Ciprofloxacin Hcl*) 500 Mg Tablet, 500 MG PO BID for 7 Days , TAB Prov:LIYA GILLESPIE MD 02/06/15 Hydrocodone Bit-Acetaminophen* ([place]*) 5-325 Mg Tab, 1 TAB PO Q6 Y for PAIN, # 10 TAB Prov:LIYA GILLESPIE MD 02/06/15 Reported Medications Metformin Hcl* (Metformin Hcl*) 1,000 Mg Tablet, 1000 MG PO BID 10/17/12 Omeprazole* (Omeprazole*) 20 Mg Capsule.dr, 20 MG PO DAILY 10/17/12 Aspirin (Adult Low Dose Aspirin) 81 Mg Tablet.dr, 81 MG PO DAILY 10/17/12 Metoclopramide Hcl* (Metoclopramide Hcl*) 10 Mg Tablet, 10 MG PO DAILY 10/17/12 Allergies Allergies: Coded Allergies: No Known Drug Allergies (Verified Allergy, Mild, 10/28/16) PMhx/Soc History of Surgery: Yes (c section) Anesthesia Reaction: No Hx Neurological Disorder: No Hx Respiratory Disorders: No Hx Cardiac Disorders: Yes (htn; hypercholesterolemia) Hx Psychiatric Problems: No Hx Miscellaneous Medical Probl: Yes (DM) Hx Alcohol Use: Yes (Social) Hx Substance Use: Yes Hx Tobacco Use: No Physical Exam Vitals Vital Signs Date Time Temp Pulse Resp B/P Pulse Ox O2 Delivery O2 Flow Rate FiO2 06/07/17 21:03 98.0 109 20 131/79 98 Physical Exam Const: No acute distress. Head: Atraumatic. Eyes: Normal Conjunctiva. ENT: Normal External Ears, Nose and Mouth. Neck: Full range of motion. No meningismus. Resp: Clear to auscultation bilaterally. Cardio: Regular rate and rhythm. Abd: Soft, non distended, normal bowel sounds, non tender. Skin: No petechiae or rashes. Back: No midline or flank tenderness. Ext: No cyanosis, or edema.No calf tenderness, negative straight leg raising test Neur: Awake and alert. No focal deficit Psych: Normal Mood and Affect. Results 24 hrs Current Medications Medications (Trade) Dose Ordered Sig/Britta Route PRN Reason Start Time Stop Time Status Last Admin Dose Admin Gabapentin (Neurontin) 300 mg ONCE ONCE PO 06/07/17 23:30 06/07/17 23:31 DC Procedures/MDM MEDICAL MAKING DECISION: The patient is a 46-year-old female, presenting with probable chronic peripheral neuropathy from diabetes. She was treated with Neurontin milligrams p.o. with good response The differential diagnoses considered include but are not limited to lumbar radiculopathy, sciatica, DVT Departure Diagnosis: Primary Impression: Peripheral neuropathy Condition: Good Comments She was discharged with Neurontin I discussed the findings with the patient. I advised the patient to follow-up with the primary physician in about 1-2 days, sooner if needed and return if any concern. Disclaimer: Inadvertent spelling and grammatical errors are likely due to EHR/ dictation software use and do not reflect on the overall quality of patient care. Also, please note that the electronic time recorded on this note does not necessarily reflect the actual time of the patient encounter. JOSIANE MARKHAM MD Jun 07, 2017 22:52
[2017-06-07] MEDS ORDERED: GABA300C PO (23:00)
[2017-06-07] MEDS ORDERED: GABAPENTIN 300 MG CAP PO ONE (23:30)
== END 2017-06-08 00:28 | disposition home or self-care (01) ==
LOC: FTE 20:59
DX: G62.9 Polyneuropathy, unspecified (principal); I10 Essential (primary) hypertension; E11.9 Type 2 diabetes mellitus without complications; Z79.84 Long term (current) use of oral hypoglycemic drugs; Z79.82 Long term (current) use of aspirin
CPT/HCPCS: Z7502; Z7610; 99283

== ENCOUNTER 2017-11-18 19:56 | Emergency (ER) | END 2017-11-19 01:08 | disposition home or self-care (01) ==

== ENCOUNTER 2017-11-22 10:24 | Emergency (ER) | END 2017-11-22 12:17 | disposition home or self-care (01) ==

== ENCOUNTER 2018-02-18 16:36 | Emergency (ER) | END 2018-02-18 19:37 | disposition home or self-care (01) ==

== ENCOUNTER 2018-04-23 16:10 | Emergency (ER) | END 2018-04-23 18:26 | disposition home or self-care (01) ==

== ENCOUNTER 2018-04-26 15:13 | Emergency (ER) | END 2018-04-26 17:59 | disposition home or self-care (01) ==

== ENCOUNTER 2018-09-04 16:13 | Emergency (ER) | payer MEDICAID ==
[~2018-09-04] VITALS: Ht 154.9 cm; Wt 62.2 kg
[~2018-09-04 16:13] MED LIST changes: +CEPH-443 PO; +ERYT1OIN6 RIGHT EYE; +GABA300C PO; +HYDR-4011 PO; -HYDR-906 PO; +IBUP-1561 PO; -IBUP400T22 PO; +LORA-441 PO; -METF1000 PO; +METF100010 PO; +METH750T93 PO; +METO10TA3 PO; -METO10TA96 PO; +NAPR-688 PO; +PHEN-538 PO
[2018-09-04 17:10] VITALS: Ht 154.9 cm; Wt 62.2 kg
--- NOTE | 2018-09-04 21:13 | ERD ---
ER Documentation Chief Complaint Chief Complaint c/o suprapubic abdominal pain HPI The patient is a 47-year-old female, presenting with suprapubic abdominal pain for the last 2 days, complains of dysuria, denies fever, chills, denies neck pain, complains of minimal chest discomfort with cough, complaint of nausea but no vomiting, denies diarrhea or constipation. She does not smoke nor drink Past medical history: Dyslipidemia, diabetes mellitus Past surgical history: 2 , cholecystectomy ROS All systems reviewed and are negative except as per history of present illness. Medications Home Meds Active Scripts Sulfamethoxazole/Trimethoprim* (Bactrim Ds* Tablet) 1 Each Tablet, 1 TAB PO BID for 7 Days, TAB Prov:JOSIANE MARKHAM MD 09/04/18 Reported Medications Insulin Lispro (Humalog) 100 Unit/1 Ml Cartridge, 20 UNIT SQ QPM, EA 09/04/18 Simvastatin* (Zocor*) 20 Mg Tablet, 20 MG PO QHS, #30 TAB 09/04/18 Discontinued Reported Medications Metformin Hcl* (Metformin Hcl*) 1,000 Mg Tablet, 1000 MG PO BID 10/17/12 Omeprazole* (Omeprazole*) 20 Mg Capsule.dr, 20 MG PO DAILY 10/17/12 Aspirin (Adult Low Dose Aspirin) 81 Mg Tablet.dr, 81 MG PO DAILY 10/17/12 Metoclopramide Hcl* (Metoclopramide Hcl*) 10 Mg Tablet, 10 MG PO DAILY 10/17/12 Discontinued Scripts Phenazopyridine Hcl* (Pyridium*) 200 Mg Tab, 200 MG PO TID PRN for URINARY PAIN, #6 TAB Prov:DONNIE MONTANO PA-C 08/08/18 Cephalexin* (Keflex*) 500 Mg Capsule, 500 MG PO QID for 5 Days, CAP Prov:DONNIE MONTANO PA-C 08/08/18 Ibuprofen* (Motrin*) 600 Mg Tab, 600 MG PO Q6, #30 TAB Prov:SAYRA WARE 04/26/18 Hydrocodone/Acetaminophen ([place] 5-325 Tablet) 1 Each Tablet, 1 TAB PO Q6H PRN for PAIN, #20 TAB Prov:DONNIE MONTANO PA-C 04/23/18 Erythromycin Base (Erythromycin) 1 Gm Oint...g., 1 APPLIC RIGHT EYE QID for 7 Days Prov:DONNIE MONTANO PA-C 04/23/18 Hydrocodone/Acetaminophen ([place] 5-325 Tablet) 1 Each Tablet, 1 TAB PO Q6H PRN for PAIN, #5 TAB Prov:BRY OSORIO MD 02/18/18 Lorazepam* (Ativan*) 0.5 Mg Tablet, 0.5 MG PO Q8H PRN for ANXIETY, #15 TAB Prov:BRY OSORIO MD 02/18/18 Cephalexin* (Keflex*) 500 Mg Capsule, 500 MG PO QID for 5 Days, CAP Prov:PEDRO PIERCE PA-C 11/22/17 Hydrocodone/Acetaminophen ([place] 5-325 Tablet) 1 Each Tablet, 1 EACH PO Q6, #7 TAB Prov:JORGE WARREN DO 11/19/17 Naproxen* (Naproxen*) 500 Mg Tablet, 500 MG PO BID PRN for PAIN, #20 TAB Prov:JORGE WARREN DO 11/19/17 Methocarbamol* (Robaxin*) 750 Mg Tablet, 750 MG PO Q6H PRN for MUSCLE SPASMS, #20 TAB Prov:GREENJORGE DO 11/19/17 Gabapentin* (Neurontin*) 300 Mg Capsule, 300 MG PO BID, #30 CAP Prov:JOSIANE MARKHAM MD 06/07/17 Ibuprofen* (Motrin*) 400 Mg Tab, 400 MG PO Q6, #15 TAB Prov:SINA ALARCON NP 10/28/16 Hydrocodone/Acetaminophen ([place] 5-325 Tablet) 1 Each Tablet, 1 TAB PO Q6H PRN for PAIN, #7 TAB Prov:SINA ALARCON NP 10/28/16 Hydrocodone/Acetaminophen ([place] 5-325 Tablet) 1 Each Tablet, 1 TAB PO Q6H PRN for PAIN, #20 TAB Prov:SAYRA WARE 09/17/16 Hydrocodone/Acetaminophen ([place] 5-325 Tablet) 1 Each Tablet, 1 EACH PO Q6, #7 TAB Prov:PEDRO PIERCE PA-C 04/06/16 Dextromethorphan Hb-Promethazine Hcl (Promethazine DM Syrup) 180 Ml Syrup, 5 ML PO Q6H PRN for COUGH, #4 OZ Prov:BRENNER,AGNES I. CHILDCARE WORKER 09/11/15 Benzocaine/Menthol ([facility] SORE THROAT [place]GE) 1 Each Lozenge, 1 EACH MM Q2H for 10 Days, LOZENGE Prov:AGNES BRENNER I. CHILDCARE WORKER 09/11/15 Acetaminophen* (Tylophen*) 500 Mg Capsule, 1000 MG PO Q6H PRN for FEVER for 10 Days, TAB Prov:BRENNER,AGNES I. CHILDCARE WORKER 09/11/15 Ibuprofen* (Motrin*) 600 Mg Tab, 600 MG PO Q6, #20 TAB Prov:BRENNER,AGNES I. CHILDCARE WORKER 09/11/15 Cetirizine Hcl* (Zyrtec*) 10 Mg Capsule, 10 MG PO DAILY, #10 TAB.CHEW Prov:BRENNER,AGNES I. CHILDCARE WORKER 09/11/15 Hydrocodone Bit-Acetaminophen* ([place]*) 5-325 Mg Tab, 1 TAB PO Q6 PRN for PAIN, #7 TAB Prov:BRENNER,AGNES I. CHILDCARE WORKER 09/11/15 Moxifloxacin Hcl* (Vigamox*) 0.5% - 3 Ml Opht, 1 DROP RIGHT EYE TID, #1 EA Prov:ANA SUTTON PA-C 04/24/15 Tramadol HCl (Tramadol HCl) 50 Mg Tab, 50 MG PO Q4 PRN for PAIN, #10 TAB Prov:ANA SUTTON PA-C 04/24/15 Tramadol HCl (Tramadol HCl) 50 Mg Tab, 50 MG PO Q6 PRN for PAIN, #20 TAB Prov:NROMAN FARLEY 02/20/15 Ciprofloxacin Hcl* (Ciprofloxacin Hcl*) 500 Mg Tablet, 500 MG PO BID for 7 Days, TAB Prov:LIYA GILLESPIE MD 02/06/15 Hydrocodone Bit-Acetaminophen* ([place]*) 5-325 Mg Tab, 1 TAB PO Q6 PRN for PAIN, #10 TAB Prov:LIYA GILLESPIE MD 02/06/15 Allergies Allergies: Coded Allergies: No Known Drug Allergies (Verified Allergy, Mild, 09/04/18) PMhx/Soc History of Surgery: Yes (c section, gallbladder) Anesthesia Reaction: No Hx Neurological Disorder: No Hx Respiratory Disorders: No Hx Cardiac Disorders: Yes (htn; hypercholesterolemia) Hx Psychiatric Problems: No Hx Miscellaneous Medical Probl: Yes (DM) Hx Alcohol Use: Yes (Social) Hx Substance Use: Yes Hx Tobacco Use: No Physical Exam Vitals Vital Signs Date Temp Pulse Resp B/P (MAP) Pulse Ox O2 O2 Flow FiO2 Time Delivery Rate 09/04/18 88 18 96/88 (91) 96 Room Air 23:04 09/04/18 98.6 93 16 115/83 99 Room Air 21:14 (94) 09/04/18 98.8 98 20 104/59 99 17:10 (74) Physical Exam Const: No acute distress. Head: Atraumatic. Eyes: Normal Conjunctiva. ENT: Normal External Ears, Nose and Mouth. Neck: Full range of motion. No meningismus. Resp: Clear to auscultation bilaterally. Cardio: Regular rate and rhythm. Abd: Soft, non distended, normal bowel sounds, minimal suprapubic discomfort, no right lower quadrant/right upper quadrant/epigastric/CVA tenderness Skin: No petechiae or rashes. Back: No midline or flank tenderness. Ext: No cyanosis, or edema. Neur: Awake and alert. No focal deficit Psych: Normal Mood and Affect. Result Diagram: 09/04/18205109/04/182051 Results 24 hrs Laboratory Tests Test 09/04/18 20:52 09/04/18 21:03 White Blood Count 3.8 10^3/ul Red Blood Count 4.10 10^6/ul Hemoglobin 12.8 g/dl Hematocrit 36.6 % Mean Corpuscular Volume 89.3 fl Mean Corpuscular Hemoglobin 31.2 pg Mean Corpuscular Hemoglobin Concent 35.0 g/dl Red Cell Distribution Width 11.3 % Platelet Count 222 10^3/UL Mean Platelet Volume 9.8 fl Immature Granulocytes % 0.300 % Neutrophils % 66.8 % Lymphocytes % 17.0 % Monocytes % 10.9 % Eosinophils % 4.5 % Basophils % 0.5 % Nucleated Red Blood Cells % 0.0 /100WBC Immature Granulocytes # 0.010 10^3/ul Neutrophils # 2.5 10^3/ul Lymphocytes # 0.6 10^3/ul Monocytes # 0.4 10^3/ul Eosinophils # 0.2 10^3/ul Basophils # 0.0 10^3/ul Nucleated Red Blood Cells # 0.0 10^3/ul Urine Color YELLOW Urine Clarity SLIGHTLY CLOUDY Urine pH 6.0 Urine Specific [place] 1.035 Urine Ketones 1+ mg/dL Urine Nitrite POSITIVE mg/dL Urine Bilirubin NEGATIVE mg/dL Urine Urobilinogen NEGATIVE mg/dL Urine Leukocyte Esterase NEGATIVE Luz Maria/ul Urine Microscopic RBC 1 /HPF Urine Microscopic WBC 3 /HPF Urine Squamous Epithelial Cells FEW /HPF Urine Bacteria FEW /HPF Urine Hemoglobin NEGATIVE mg/dL Urine Glucose 3+ mg/dL Urine Total Protein NEGATIVE mg/dl Sodium Level 133 mmol/L Potassium Level 3.8 mmol/L Chloride Level 99 mmol/L Carbon Dioxide Level 26 mmol/L Anion Gap 8 Blood Urea Nitrogen 13 mg/dl Creatinine 0.30 mg/dl Est Glomerular Filtrat Rate mL/min > 60 mL/min Glucose Level 333 mg/dl Calcium Level 8.5 mg/dl Total Bilirubin 0.4 mg/dl Direct Bilirubin 0.00 mg/dl Indirect Bilirubin 0.4 mg/dl Aspartate Amino Transf (AST/SGOT) 50 IU/L Alanine Aminotransferase (ALT/SGPT) 50 IU/L Alkaline Phosphatase 104 IU/L Troponin I < 0.012 ng/ml Total Protein 6.9 g/dl Albumin 3.9 g/dl Globulin 3.00 g/dl Albumin/Globulin Ratio 1.30 Lipase 40 U/L POC Beta HCG, Qualitative NEGATIVE Current Medications Medications Dose Sig/Britta Start Time Status Last (Trade) Ordered Route PRN Stop Time Admin Dose Reason Admin 1 tab ONCE ONCE 09/05/18 Trimethoprim/ PO 00:00 09/05/18 00:01 Sulfamethoxaz ole (Bactrim (Ds)) Procedures/[place] [address] Radiology Main Line: [phone] DIAGNOSTIC IMAGING REPORT Patient: LEODAN SESAY : 1970 Age: 47 Sex: F MR #: [id number] DOS: 09/04/182119 Ordering MD: JOSIANE MARKHAM MD Location: E/R Room/Bed: PROCEDURE: XR Chest. CLINICAL INDICATION: Cough. TECHNIQUE: AP view of the chest was obtained. COMPARISON: 10/07/2012 FINDINGS: The cardiomediastinal silhouette is within normal limits. The lungs are clear. No signs of pleural fluid or pneumothorax are seen. The osseous structures and soft tissues are unremarkable. IMPRESSION: 1. No evidence for active cardiopulmonary disease. RPTAT: HGAS .Zeke Escobedo MD, MD Date Time Electronically viewed and signed by .Zeke Escobedo MD, MD on 09/04/2018 21:41 .S/ CC: JOSIANE MARKHAM MD [phone] EKG: Read by emergency physician Rate/Rhythm: Normal Sinus Rhythm 90 beats per min QRS, ST, T-waves: No ST elevation, no T wave inversion Impression: Normal EKG MEDICAL MAKING DECISION: The patient is a 47-year-old female, presenting with acute cystitis, acute hyperglycemia. She was treated with 1 L normal saline for acute hyperglycemia, Bactrim DS p.o. for acute cystitis, Toradol 30 mg IV for acute pain with good response, is stable for outpatient follow-up The differential diagnoses considered include but are not limited to choledocholithiasis, cholangitis, pancreatitis, hepatitis, gastritis, peptic ulcer disease, gastric ulcer, appendicitis, cystitis, diverticulitis, partial small bowel obstruction. Departure Diagnosis: Primary Impression: UTI (urinary tract infection) Additional Impressions: Hyperglycemia Leukopenia Condition: Good Comments She was discharged with Bactrim DS I discussed the findings with the patient. I advised the patient to follow-up with the primary physician in about 2-3 days, sooner if needed and return if any concern. Disclaimer: Inadvertent spelling and grammatical errors are likely due to EHR/dictation software use and do not reflect on the overall quality of patient care. Also, please note that the electronic time recorded on this note does not necessarily reflect the actual time of the patient encounter. JOSIANE MARKHAM MD Sep 04, 2018 21:13
[2018-09-04] MEDS ORDERED: SIMV20TA PO (21:41)
[2018-09-04] MEDS ORDERED: INSU100C SQ (21:42)
[2018-09-04] MEDS ORDERED: SULF1TAB31 PO (23:37)
[2018-09-04] MEDS ORDERED: KETOROLAC 30 MG INJ IV STA (23:39)
[2018-09-04] MEDS ORDERED: ONDANSETRON 4 MG INJ IV STA (23:58)
[2018-09-05] MEDS ORDERED: SOD CHLORIDE 0.9% 1,000 ML IV ONE
[2018-09-05] MEDS ORDERED: TRIMETHOPRIM/SULFAMETHOX (DS) TAB PO ONE
[2018-09-05 01:25] VITALS: BP 104/63; PULSE 89; RESP 15
== END 2018-09-05 01:25 | disposition home or self-care (01) ==
LOC: E/R 16:13
DX: N39.0 Urinary tract infection, site not specified (principal); D72.819 Decreased white blood cell count, unspecified; E11.65 Type 2 diabetes mellitus with hyperglycemia; I10 Essential (primary) hypertension; Z79.4 Long term (current) use of insulin; Z79.82 Long term (current) use of aspirin
CPT/HCPCS: 36415; 71045; 80053; 81001; 81025; 83690; 84484; 85025; 87086; 93005; 96374; 96375; J1885; J2405; J7030; Z7502; Z7610

== ENCOUNTER 2018-10-12 14:46 | Emergency (ER) | payer SELFPAY ==
[~2018-10-12] VITALS: Wt 55.0 kg
[~2018-10-12 14:46] MED LIST changes: -ACET500C5 PO; -ASPI-465 PO; -BENZ1LOZ28 MM; -CEPH-443 PO; -CETI10CA PO; -CIPR500T4 PO; -D-ME118S6 PO; -ERYT1OIN6 RIGHT EYE; -GABA300C PO; -HYDR-3498 PO; -HYDR-4011 PO; -IBUP-1542 PO; -IBUP-1561 PO; +INSU100C SQ; -LORA-441 PO; -METF100010 PO; -METH750T93 PO; -METO10TA3 PO; -NAPR-688 PO; -OMEP20CA16 PO; -PHEN-538 PO; +SIMV20TA PO; +SULF1TAB31 PO; -TRAM50TA2 PO; -VIGA RIGHT EYE
--- NOTE | 2018-10-12 15:00 | ERD ---
ER Documentation Chief Complaint Chief Complaint Dysuria ROS All systems reviewed and are negative except as per history of present illness. Medications Home Meds Active Scripts Sulfamethoxazole/Trimethoprim* (Bactrim Ds* Tablet) 1 Each Tablet, 1 TAB PO BID for 7 Days, TAB Prov:JOSIANE MARKHAM MD 09/04/18 Reported Medications Insulin Lispro (Humalog) 100 Unit/1 Ml Cartridge, 20 UNIT SQ QPM, EA 09/04/18 Simvastatin* (Zocor*) 20 Mg Tablet, 20 MG PO QHS, #30 TAB 09/04/18 Allergies Allergies: Coded Allergies: No Known Drug Allergies (Verified Allergy, Mild, 09/04/18) PMhx/Soc History of Surgery: Yes (c section, gallbladder) Anesthesia Reaction: No Hx Neurological Disorder: No Hx Respiratory Disorders: No Hx Cardiac Disorders: Yes (htn; hypercholesterolemia) Hx Psychiatric Problems: No Hx Miscellaneous Medical Probl: Yes (DM) Hx Alcohol Use: Yes (Social) Hx Substance Use: Yes Hx Tobacco Use: No Physical Exam Vitals Vital Signs Date Temp Pulse Resp B/P (MAP) Pulse Ox O2 O2 Flow FiO2 Time Delivery Rate 10/12/18 98.1 77 18 130/85 98 14:59 (100) Physical Exam Const: No acute distress Head: Atraumatic Eyes: Normal Conjunctiva ENT: Normal External Ears, Nose and Mouth. Neck: Full range of motion. No meningismus. Resp: Clear to auscultation bilaterally Cardio: Regular rate and rhythm, no murmurs Abd: Soft, non tender, non distended. Normal bowel sounds Skin: No petechiae or rashes Back: No midline or flank tenderness Ext: No cyanosis, or edema Neur: Awake and alert Psych: Normal Mood and Affect Results 24 hrs Laboratory Tests Test 10/12/18 15:24 Bedside Glucose 368 mg/dL Procedures/MDM DOCUMENTS REVIEWED: ED nurse, prior records LAB INTERPRETATION: [] REEXAMINATION/REEVALUATION: Time: [] MEDICAL DECISION MAKING: []. Stable for discharge with precautionary instructions and outpatient follow-up as counseled. Counseled patient regarding diagnostic workup, diagnosis and need for followup. Understands to return to ED if symptoms recur, worsen or any other concerns. Departure Diagnosis: Primary Impression: Dysuria Additional Impressions: UTI (urinary tract infection) Urinary tract infection type: acute cystitis Hematuria presence: without hematuria Qualified Codes: N30.00 - Acute cystitis without hematuria Hyperglycemia Condition: ISAIAH Maravilla MD Oct 12, 2018 15:00
[2018-10-12] MEDS ORDERED: NITR-58 PO (15:53)
[2018-10-12 16:30] VITALS: BP 113/71; PULSE 91; RESP 16
== END 2018-10-12 16:34 | disposition home or self-care (01) ==
LOC: E/R 14:46
DX: N30.00 Acute cystitis without hematuria (principal); I10 Essential (primary) hypertension; E11.65 Type 2 diabetes mellitus with hyperglycemia; Z79.4 Long term (current) use of insulin
CPT/HCPCS: 82962; 87086; 99283

== ENCOUNTER 2018-10-21 16:52 | Emergency (ER) | payer SELFPAY ==
[~2018-10-21] VITALS: Ht 154.9 cm; Wt 59.5 kg
[~2018-10-21 16:52] MED LIST changes: +NITR-58 PO
[2018-10-21 17:34] VITALS: BP 103/57; PULSE 87; RESP 18; Ht 154.9 cm; Wt 59.5 kg
[2018-10-21] MEDS ORDERED: KETOROLAC 30 MG INJ IM STA (19:23)
[2018-10-21] MEDS ORDERED: METHOCARBAMOL 750 MG TAB PO ONE (19:30)
[2018-10-21] MEDS ORDERED: TRAM50TA2 PO (20:49)
[2018-10-21] MEDS ORDERED: IBUP-1542 PO (20:49)
[2018-10-21] MEDS ORDERED: ONDA4TAB14 PO (20:49)
--- NOTE | 2018-10-21 20:53 | ERD ---
ER Documentation Chief Complaint Chief Complaint RT UPPER BACK PAIN X 3 DAYS , NO TRAUMA HPI 47-year-old female presents for right upper back pain times 3 days. She denies any history of trauma. She took Tylenol and Motrin at home without relief. She states that she has 6 out of 10 pain. She. She denies vomiting or fever. Denies dysuria. Denies any recent procedures or infections. Denies history of cancer. ROS All systems reviewed and are negative except as per history of present illness. Medications Home Meds Active Scripts Ondansetron (Ondansetron Odt) 4 Mg Tab.rapdis, 4 MG PO Q6H PRN for NAUSEA AND/OR VOMITING, #15 TAB Prov:JOSIANE MADRID DO 10/21/18 Ibuprofen* (Motrin*) 600 Mg Tab, 600 MG PO Q6H PRN for PAIN AND OR ELEVATED TEMP, #30 TAB Prov:JOSIANE MADRID DO 10/21/18 Tramadol HCl (Tramadol HCl) 50 Mg Tablet, 50 MG PO Q6 PRN for PAIN, #20 TAB Prov:JOSIANE MADRID DO 10/21/18 Nitrofurantoin Monohyd Macrocr* (Macrobid*) 100 Mg Capsr, 100 MG PO HS for 7 Days, CAP Prov:ISAIAH YIN MD 10/12/18 Sulfamethoxazole/Trimethoprim* (Bactrim Ds* Tablet) 1 Each Tablet, 1 TAB PO BID for 7 Days, TAB Prov:JOSIANE MARKHAM MD 09/04/18 Reported Medications Insulin Lispro (Humalog) 100 Unit/1 Ml Cartridge, 20 UNIT SQ QPM, EA 09/04/18 Simvastatin* (Zocor*) 20 Mg Tablet, 20 MG PO QHS, #30 TAB 09/04/18 Allergies Allergies: Coded Allergies: No Known Drug Allergies (Verified Allergy, Mild, 09/04/18) PMhx/Soc History of Surgery: Yes (cholecystectomy, c/section x2) Anesthesia Reaction: No Hx Neurological Disorder: No Hx Respiratory Disorders: No Hx Cardiac Disorders: Yes (htn; hypercholesterolemia) Hx Psychiatric Problems: No Hx Miscellaneous Medical Probl: Yes (dm) Hx Alcohol Use: No Hx Substance Use: No Hx Tobacco Use: No Smoking Status: Never smoker Physical Exam Vitals Vital Signs Date Temp Pulse Resp B/P (MAP) Pulse Ox O2 O2 Flow FiO2 Time Delivery Rate 10/21/18 97.8 87 18 103/57 100 17:34 (72) Physical Exam Const: No acute distress Neck: Full range of motion. No meningismus. no midline tenderness Resp: Clear to auscultation bilaterally Cardio: Regular rate and rhythm, no murmurs, bilateral radial and dorsalis pedis pulses intact and equal Abd: Soft, non tender, non distended. Normal bowel sounds, no abdominal bruit noted Skin: No petechiae or rashes Back: no point tenderness, there is upper thoracic right-sided paravertebral muscle tenderness palpation Ext: No cyanosis, or edema, 5/5 muscle strength bilateral upper and lower extremities Neur: Awake and alert, bilateral upper and lower extremity sensation intact Psych: Normal Mood and Affect Results 24 hrs Laboratory Tests Test 10/21/18 19:37 POC Beta HCG, Qualitative NEGATIVE Current Medications Medications Dose Sig/Britta Start Time Status Last (Trade) Ordered Route PRN Stop Time Admin Dose Reason Admin Ketorolac 30 mg ONCE STAT 10/21/18 DC 10/21/18 Tromethamine IM 19:23 10/21/18 19:39 (Toradol) 19:24 750 mg ONCE ONCE 10/21/18 DC 10/21/18 Methocarbamol PO 19:30 10/21/18 19:39 (Robaxin) 19:31 Procedures/MDM Medical Decision Making: Differential diagnosis includes but not limited to muscle strain, ligamentous sprain, epidural abscess, osteomyelitis, osteoarthritis, herniated disc, compression fracture, aortic aneurysm, kidney stone, pyelonephritis, pancreatitis. Patient appeared well on physical examination. Nontoxic appearing. Patient appeared well on physical examination. Nontoxic appearing. No recent back procedure, therefore low suspicion for epidural abscess No recent infection, therefore low suspicion for osteomyelitis No trauma, therefore low suspicion for fracture No chest pain, abdominal pain and no pulse deficits noted, therefore low suspicion for aortic dissection or pancreatitis No flank pain or fever to suggest pyelonephritis or kidney stone ED course: Patient was given Toradol and Robaxin. Symptoms improved with treatment. Prescription(s): Patient given prescription for supportive medication(s) include tramadol short course. Patient advised to follow up with PCP in 1-2 days. Patient advised to return to ED for new or worsening symptoms. Patient stable on discharge from the ED. Disclaimer: Inadvertent spelling and grammatical errors are likely due to EHR/dictation software use and do not reflect on the overall quality of patient care. Also, please note that the electronic time recorded on this note does not necessarily reflect the actual time of the patient encounter. Departure Diagnosis: Primary Impression: Back pain Back pain location: thoracic back pain Chronicity: chronic Back pain laterality: unspecified Qualified Codes: M54.6 - Pain in thoracic spine; G89.29 - Other chronic pain Condition: Fair Patient Instructions: Back Pain (Acute Or Chronic) Referrals: [facility] YOU HAVE RECEIVED A MEDICAL SCREENING EXAM AND THE RESULTS INDICATE THAT YOU DO NOT HAVE A CONDITION THAT REQUIRES URGENT TREATMENT IN THE EMERGENCY DEPARTMENT. FURTHER EVALUATION AND TREATMENT OF YOUR CONDITION CAN WAIT UNTIL YOU ARE SEEN IN YOUR DOCTORS OFFICE WITHIN THE NEXT 1-2 DAYS. IT IS YOUR RESPONSIBILITY TO MA KE AN APPOINTMENT FOR FOLOW-UP CARE. IF YOU HAVE A PRIMARY DOCTOR --you should call your primary doctor and schedule an appointment IF YOU DO NOT HAVE A PRIMARY DOCTOR YOU CAN CALL OUR PHYSICIAN REFERRAL HOTLINE AT IF YOU CAN NOT AFFORD TO SEE A PHYSICIAN YOU CAN CHOSE FROM THE FOLLOWING [facility] [address] [facility]. [facility] [address] [employer] [facility]. [facility] [address] [facility]. [facility] [address] [facility]. [facility] [address] [facility]. [facility]. [address] Additional Instructions: Llame al doctor MAANA y ga jennie EUN PARA DENTRO DE 1-2 WHITTAKER.Dgale a la secretaria que nosotros le instruimos hacer esta eun.Avise o llame si medina condicin se empeora antes de la eun. Regresa aqui si peor o no mejor. JOSIANE MADRID DO Oct 21, 2018 20:52
== END 2018-10-21 20:56 | disposition home or self-care (01) ==
LOC: FTE 16:52
DX: M54.6 Pain in thoracic spine (principal); I10 Essential (primary) hypertension; E11.9 Type 2 diabetes mellitus without complications; Z79.4 Long term (current) use of insulin
CPT/HCPCS: 81025; 96372; 99284; J1885

== ENCOUNTER 2019-01-22 16:32 | Emergency (ER) | payer SELFPAY ==
[~2019-01-22] VITALS: Ht 157.5 cm; Wt 65.2 kg
[~2019-01-22 16:32] MED LIST changes: +IBUP-1542 PO; +ONDA4TAB14 PO; +TRAM50TA2 PO
[2019-01-22 17:37] VITALS: BP 101/62; PULSE 92; RESP 20; Ht 157.5 cm; Wt 65.2 kg
[2019-01-22] MEDS ORDERED: KETOROLAC 60 MG INJ IM STA (19:32)
[2019-01-22] MEDS ORDERED: CYCLOBENZAPRINE 10 MG TAB PO ONE (20:00)
[2019-01-22] MEDS ORDERED: PHENAZOPYRIDINE 100 MG TAB PO ONE (20:00)
[2019-01-22] MEDS ORDERED: CYCL10TA7 PO (20:25)
[2019-01-22] MEDS ORDERED: CEPH-443 PO (20:25)
[2019-01-22] MEDS ORDERED: IBUP-1542 PO (20:25)
[2019-01-22] MEDS ORDERED: PHEN-538 PO (20:29)
[2019-01-22] MEDS ORDERED: CEPHALEXIN 500 MG CAP PO ONE (20:30)
--- NOTE | 2019-01-22 21:36 | ERD ---
ER Documentation Chief Complaint Chief Complaint c/o dysuria x4 days and left thigh pain HPI History of Present Illness: 38-year-old female with a past medical history of diabetes and hyperlipidemia coming in today with complaint of dysuria for 4 days. Patient also reporting left lower extremity pain. Patient denies any other associated symptoms. At home pharmacological/nonpharmacological treatment for symptoms: Denies Denies social concerns; Denies recent foreign travel ROS All systems reviewed and are negative except as per history of present illness. Medications Home Meds Active Scripts Phenazopyridine Hcl* (Pyridium*) 200 Mg Tab, 200 MG PO Q8 PRN for URINARY PAIN, #5 TAB Prov:PARRISH RODRÍGUEZ V [employer] 01/22/19 Cephalexin* (Keflex*) 500 Mg Capsule, 500 MG PO TID for URINE INFECTION for 7 Days, CAP Prov:PARRISH RODRÍGUEZ [employer] 01/22/19 Cyclobenzaprine Hcl* (Cyclobenzaprine Hcl*) 10 Mg Tablet, 10 MG PO TID for SCIATICA FLAREUP/MUSCLE SPASM, #15 TAB Prov:PARRISH RODRÍGUEZ [employer] 01/22/19 Ibuprofen* (Motrin*) 600 Mg Tab, 600 MG PO Q6H PRN for SCIATICA FLAREUP/PAIN/INFLAMMA, #30 TAB Prov:PARRISH RODRÍGUEZ NP 01/22/19 Ondansetron (Ondansetron Odt) 4 Mg Tab.rapdis, 4 MG PO Q6H PRN for NAUSEA AND/OR VOMITING, #15 TAB Prov:JOSIANE MADRID DO 10/21/18 Ibuprofen* (Motrin*) 600 Mg Tab, 600 MG PO Q6H PRN for PAIN AND OR ELEVATED TEMP, #30 TAB Prov:JOSIANE MADRID DO 10/21/18 Tramadol HCl (Tramadol HCl) 50 Mg Tablet, 50 MG PO Q6 PRN for PAIN, #20 TAB Prov:JOSIANE MADRID DO 10/21/18 Nitrofurantoin Monohyd Macrocr* (Macrobid*) 100 Mg Capsr, 100 MG PO HS for 7 Days, CAP Prov:ISAIAH YIN MD 10/12/18 Sulfamethoxazole/Trimethoprim* (Bactrim Ds* Tablet) 1 Each Tablet, 1 TAB PO BID for 7 Days, TAB Prov:JOSIANE MARKHAM MD 09/04/18 Reported Medications Insulin Lispro (Humalog) 100 Unit/1 Ml Cartridge, 20 UNIT SQ QPM, EA 09/04/18 Simvastatin* (Zocor*) 20 Mg Tablet, 20 MG PO QHS, #30 TAB 09/04/18 Allergies Allergies: Coded Allergies: No Known Drug Allergies (Verified Allergy, Mild, 09/04/18) PMhx/Soc History of Surgery: Yes (cholecystectomy, c/section x2) Anesthesia Reaction: No Hx Neurological Disorder: No Hx Respiratory Disorders: No Hx Cardiac Disorders: Yes (htn; hypercholesterolemia) Hx Psychiatric Problems: No Hx Miscellaneous Medical Probl: No Hx Alcohol Use: No Hx Substance Use: No Hx Tobacco Use: No Smoking Status: Never smoker Physical Exam Vitals Vital Signs Date Temp Pulse Resp B/P (MAP) Pulse Ox O2 O2 Flow FiO2 Time Delivery Rate 01/22/19 98.2 92 20 101/62 99 17:37 (75) Physical Exam Const: No acute distress, afebrile Head: Atraumatic Eyes: Normal Conjunctiva ENT: Normal External Ears, Nose and Mouth. Neck: Full range of motion. No meningismus. Resp: Clear to auscultation bilaterally Cardio: Regular rate and rhythm, no murmurs Abd: Soft, suprapubic tenderness, non distended. Normal bowel sounds. No guarding, no masses, no rigidity Skin: No petechiae or rashes Back: No midline or flank tenderness Ext: No cyanosis, or edema; LLE: Tenderness to palpation to left gluteal and posterior of left lower extremity Neur: Awake and alert x3, speaking in clear sentences, no focal deficits or facial asymmetry Psych: Normal Mood and Affect Results 24 hrs Laboratory Tests Test 01/22/19 18:53 01/22/19 18:57 Urine Color DIPIKA Urine Clarity TURBID Urine pH 6.0 Urine Specific [place] 1.020 Urine Ketones NEGATIVE mg/dL Urine Nitrite POSITIVE mg/dL Urine Bilirubin NEGATIVE mg/dL Urine Urobilinogen 1+ mg/dL Urine Leukocyte Esterase 2+ Luz Maria/ul Urine Microscopic RBC 5 /HPF Urine Microscopic WBC > 182 /HPF Urine Squamous Epithelial Cells FEW /HPF Urine Bacteria MANY /HPF Urine Mucus FEW /HPF Urine Hemoglobin NEGATIVE mg/dL Urine Glucose NEGATIVE mg/dL Urine Total Protein 2+ mg/dl Bedside Urine pH (LAB) 7.0 Bedside Urine Protein (LAB) 2+ Bedside Urine Glucose (UA) Negative Bedside Urine Ketones (LAB) Negative Bedside Urine Blood 1+ Bedside Urine Nitrite (LAB) Positive Bedside Urine Leukocyte Esterase (L 2+ POC Beta HCG, Qualitative NEGATIVE Current Medications Medications Dose Sig/Britta Start Time Status Last (Trade) Ordered Route PRN Stop Time Admin Dose Reason Admin 200 mg ONCE ONCE 01/22/19 DC 01/22/19 Phenazopyridi PO 20:00 01/22/19 19:39 ne HCl 20:01 (Pyridium) Ketorolac 60 mg ONCE STAT 01/22/19 DC 01/22/19 Tromethamine IM 19:32 01/22/19 19:39 (Toradol) 19:34 10 mg ONCE ONCE 01/22/19 DC 01/22/19 Cyclobenzapri PO 20:00 01/22/19 19:39 ne HCl 20:01 (Flexeril) Cephalexin 500 mg ONCE ONCE 01/22/19 DC 01/22/19 (Keflex) PO 20:30 01/22/19 20:28 20:31 Procedures/MDM ED COURSE: ED course includes a thorough examination and history. The patient was stable throughout ED course. I kept the patient and/or family informed of laboratory and diagnostic imaging results throughout the ED course. LABS: Urinalysis positive for nitrites, 2+ leukocyte Estrace, over 182 WBCs, many bacteria, Urine negative. MEDICATIONS GIVEN IN ER: Cyclobenzaprine, ketorolac for sciatica symptoms Cephalexin and Pyridium for urinary tract patient tolerated medication well with no adverse reactions. Patient reported improvement in pain. DIAGNOSTIC IMAGING: None PROCEDURES: None. MEDICAL DECISION MAKING: Low suspicion for life-threatening medical emergency. Low suspicion for infectious process that requires hospitalization patient presenting with constellation of symptoms likely representing sciatica and urinary tract infection as characterized by history, physical exam findings. Patient reassessment @ 2028: Results discussed. First dose of antibiotics given for discharge. Decrease in pain after medication administration patient hemodynamically stable. No respiratory distress, otherwise relatively well appearing and nontoxic. Disposition given. Patient educated on diagnoses, prescriptions, follow-up care, return precautions. Strict return precautions given for worsening condition; questions answered discharge. Patient verbalizes understanding of discharge instructions. PRESCRIPTIONS FOR HOME: Pyridium, Keflex, for urinary tract infection cyclobenzaprine, ibuprofen for sciatica DISPOSITION: DISCHARGE At this time, patient is stable for discharge and outpatient management. I have instructed the patient to follow-up with his/her primary care physician in 1-2 days. I have discussed with the patient the possibility of needing to see a specialist for further workup and imaging studies if symptoms persist. I have instructed the patient to promptly return to the ER for any new or worsening symptoms including increased pain, fever, nausea, vomiting, weakness or LOC. The patient and/or family expressed understanding of and agreement with this plan. All questions were answered. Home care instructions were provided. DISCLAIMER: Inadvertent spelling and grammatical errors are likely due to EHR/dictation software use and do not reflect on the overall quality of patient care. Also, p sahra note that the electronic time recorded on this note does not necessarily reflect the actual time of the patient encounter. Departure Diagnosis: Primary Impression: Sciatica of left side Additional Impression: Urinary tract infection Condition: Stable Patient Instructions: Urinary Tract Infections in Women, Understanding Sciatica Referrals: [facility] Usted se woodward hecho un examen mdico de control que le indica que no est en jennie condicin que requiera tratamiento urgente en el Departamento de Emergencia. Un estudio ms profundo y el tratamiento de carpenter condicin pueden esperar sin ningn riesgo hasta que usted sea atendida/o en el consultorio de carpenter mdico o jennie clnica. Es responsabilidad suya arreglar jennie janes para el seguimiento del winter. MANEJO DE CONDICIONES NO URGENTES EN EL FUTURO 1) Si usted tiene un mdico de atencin primaria: Usted debera llamar a carpenter mdico de atencin primaria antes de venir al departamento de emergencia. Despus de las horas de consultorio, carpenter doctor o carpenter asociado/a est disponible por telfono. El mdico o enfermero de german en el servicio telefnico puede asesorarle por seven medio para atender el problema, o winter contrario se puede programar jennie janes. 2) Si usted no tiene un mdico de atencin primaria: Llame al mdico o clnica de referencia que aparece abajo sravanthi las horas de consultorio para hacer jennie janes para que le vean. CLINICAS: [facility] [phone] [facility] [phone] [place] [facility] [phone] [place] [phone] [place] [address] [phone] [facility] [phone] [address] [facility] () Wili se woodward hecho un examen mdico de control que le indica que no est en jennie condicin que requiera tratamiento urgente en el Departamento de Emergencia. Un estudio ms profundo y el tratamiento de carpenter condicin pueden esperar sin ningn riesgo hasta que ted sea atendida/o en el consultorio de carpenter mdico o jennie clnica. Es responsabilidad suya arreglar jennie janes para el seguimiento del winter. MANEJO DE CONDICIONES NO URGENTES EN EL FUTURO 1) Si usted tiene un mdico de atencin primaria: Wili debera llamar a carpenter mdico de atencin primaria antes de venir al departamento de emergencia. Despus de las horas de consultorio, carpenter doctor o carpenter asociado/a est disponible por telfono. El mdico o enfermero de german en el servicio telefnico puede asesorarle por seven medio para atender el problema, o winter contrario se puede programar jennie janes. 2) Si usted no tiene un mdico de atencin primaria: Llame al mdico o condado institucions de referencia que aparece abajo sravanthi las horas de consultorio para hacer jennie janes para que le vean. SI USTED NO PUEDE PAGAR PARA MANNY UN MEDICO puede ir a: [facility] [address] [place] [address] [facility] [address] [place] [address] [facility] [address] [place] [address] [facility] [address] [place], [place] [id number] Additional Instructions: Google Translate utilizado para la traduccin de las siguientes lneas, por favor, disculpe los errores. Muchas nasrin por permitirnos participar en carpenter cuidado. Carpenter kushal y seguridad es nuestra principal prioridad en [facility]. Es importante leer todas las instrucciones de mary y la educacin que se proporcionan en carpenter paquete de mary. Llame a carpenter mdico de atencin primaria MAANA para jennie janes sravanthi los prximos 2 a 4 alonzo y lleve toda la informacin y los medicamentos recetados. -Keflex / cefalexina es un antibitico; tome cierra medicamento todos los alonzo bibi se indica en carpenter receta. Debe completar todo el curso de tratamiento que figura en carpenter receta. [place] es muy importante porque se necesitan varios alonzo para eliminar las bacterias que causan la infeccin. -El ibuprofeno es un medicamento que ayuda con el dolor / inflamacin. En la dosis de 600 a 800 mg, esto ayudar con la inflamacin / hinchazn. [place] cierra medicamento segn las indicaciones. [place] ayudar con el brote del nervio citico. -Ciclobenzaprina bibi relajante muscular; tome cierra medicamento diariamente segn lo prescrito para la prxima semana para ayudar con carpenter espasmo muscular. No opere maquinaria pesada mientras est tomando cierra medicamento; Puede causarle somnolencia. [place] ayudar con el brote del nervio citico. --Phenazopyridine / Pyridium es un medicamento que ayudar a disminuir el dolor urinario. Cierra medicamento nilton que carpenter orina adquiera un color naranja. Cierra es un efecto secundario normal de la medicacin. Llene las recetas y siga exactamente las instrucciones de la etiqueta. Si los sntomas empeoran y carpenter proveedor no est disponible, regrese inmediatamente al Departamento de Emergencias. ----- Google Translate used for translation of following lines, please excuse errors. Thank you very much for allowing us to participate in your care. Your health and safety is our top priority at [facility]. It is important to read all discharge instructions and education provided in your discharge packet. Call your primary care doctor TOMORROW for an appointment during the next 2-4 days and bring all the information and medications prescribed. Have prescriptions filled and follow precisely the directions on the label. -Keflex/cephalexin is an antibiotic; take this medication every day as listed on your prescription. You must complete the entire course of treatment that is listed on your prescription this is very important because it takes a certain number of days to kill the bacteria that is causing the infection. -Ibuprofen is a medication that will help with pain/inflammation. At the dosage of 600 to 800 mg, this will help with inflammation/swelling. Take this medication as prescribed. This will help with sciatica nerve flareup -Cyclobenzaprine as a muscle relaxer; take this medication daily as prescribed for the next week to help with your muscle spasm. Do not operate heavy machinery while taking this medication; It may make you drowsy. This will help with sciatica nerve flareup --Phenazopyridine/Pyridium is a medication that will help decrease urinary pain. This medication will make your urine turn orange color. This is a normal side effect of the medication. If the symptoms get worse and your provider is unavailable, return to the Emergency Department immediately. PARRISH RODRÍGUEZ NP Jan 22, 2019 21:36
== END 2019-01-22 20:41 | disposition home or self-care (01) ==
LOC: FTE 16:32
DX: M54.32 Sciatica, left side (principal); N39.0 Urinary tract infection, site not specified; I10 Essential (primary) hypertension; E11.9 Type 2 diabetes mellitus without complications; Z79.4 Long term (current) use of insulin
CPT/HCPCS: 81001; 81025; 96372; 99284; J1885; 81003